=== PATIENT | male | born 1980 | race Caucasian/White ===

== ENCOUNTER → 2021-01-08 | Outpatient (CLI) | payer OTHER ==
--- NOTE | 2021-01-08 16:53 | DIREP ---
PROCEDURE:XRAY SHOULDER MIN 2 VWS-LT COMPARISON:[facility], CR, XRAY SHOULDER MIN 2 VWS-LT, 01/02/2021, 02:58 PM. INDICATIONS:S49.92XA INJURY OF LEFT SHOULDER, V80.010A ANIMAL RIDER INJURED FINDINGS: BONES:Normal. JOINTS:Normal glenohumeral and acromioclavicular joints. No evidence for dislocation. SOFT TISSUES:Normal. OTHER:Normal. CONCLUSION:Normal left shoulder. Dictated by: Surinder Mcintyre M.D. on 01/08/2021 at 04:49 PM
== END | disposition home or self-care (01) ==
LOC: RAD 16:24
PROVIDERS: ATTEND Nurse Practitioner Adult Health
DX: S49.92XA Unspecified injury of left shoulder and upper arm, initial encounter (principal); V80.010A Animal-rider injured by fall from or being thrown from horse in noncollision accident, initial encounter; Y92.89 Other specified places as the place of occurrence of the external cause; Y93.89 Activity, other specified; Y99.8 Other external cause status
CPT/HCPCS: 73030-LT

== ENCOUNTER → 2021-01-31 | Outpatient (CLI) | payer OTHER ==
--- NOTE | 2021-01-31 11:07 | DIREP ---
PROCEDURE:MRI UPPER EXTREM JOINT W O CON LEFT COMPARISON:[facility], CR, XRAY SHOULDER MIN 2 VWS-LT, 01/08/2021, 04:36 PM. INDICATIONS:S49.92XA INJURY OF LEFT SHOULDER, V80.010A ANIMAL RIDER INJURED IN FALL TECHNIQUE:A variety of imaging planes and parameters were utilized for visualization of suspected pathology. Images were performed without contrast. FINDINGS: ROTATOR CUFF REGION CUFF TENDONS:Full-thickness tear at the mid and posterior infraspinous tendon in the majority of the infraspinous tendon, measures approximately 2.4 cm in AP with retraction to the apex of the humeral. Small septated cyst at the infraspinous Antonio tendinous junction measures 18 mm. Teres minor tendon is intact. Sub scapularis tendinosis. CUFF MUSCLES:Normal appearing muscles. DELTOID:Normal. No significant atrophy or tear. LONG BICEPS TENDON:Normal. No abnormal signal, attrition, or tear. LABRUM/BICEPS ANCHOR SUPERIOR:Superior labrum is torn. ANTERIOR/INFERIOR:Normal. No visible tear or attrition. POSTERIOR:Normal. No posterior labrum abnormality. CAPSULE ANTERIOR/INFERIOR:Normal. No visible capsular laxity or thickening. POSTERIOR:Normal. No visible capsular laxity or thickening. AC JOINT REGION AC JOINT:Normal acromioclavicular joint. AC LIGAMENTS:Normal acromioclavicular ligament. CC LIGAMENTS:Normal coracoclavicular ligaments. ACROMION:Normal horizontal (Type I) configuration. SUBACROMIAL BURSA:Normal. No significant effusion. HYALINE CARTILAGE:Normal. No visible cartilage narrowing or focal defect. OTHER BONES:Normal proximal humerus, glenoid, and coracoid. OTHER OBSERVATIONS:Mild glenohumeral effusion. CONCLUSION:Near complete tear of the supraspinatus tendon and infraspinous tendon as detailed above. Superior labrum is torn. Dictated by: Star Wick M.D. on 01/31/2021 at 11:03 AM
== END | disposition home or self-care (01) ==
LOC: RAD 09:02
PROVIDERS: ATTEND Nurse Practitioner Adult Health
DX: S49.92XA Unspecified injury of left shoulder and upper arm, initial encounter (principal); V80.010A Animal-rider injured by fall from or being thrown from horse in noncollision accident, initial encounter; X58.XXXA Exposure to other specified factors, initial encounter; Y92.89 Other specified places as the place of occurrence of the external cause; Y99.8 Other external cause status; Y93.89 Activity, other specified
CPT/HCPCS: 73221

== ENCOUNTER 2021-03-20 07:00 | Day surgery (SDC) | payer OTHER ==
[2021-03-18 15:03] VITALS: BP 143/84
[2021-03-18 15:39] LABS: BASOPHIL % 0.5 % (0.0-0.2); EOSINOPHIL # 0.2 10^3/uL (0.0-0.2); EOSINOPHIL % 2.1 % (0.0-5.0); LYMPHOCYTES # 1.96 10^3/uL1 (1.0-4.8); MEAN CORP HGB 31.2 pg (26-34); MONOCYTES # 0.7 10^3/uL (0.3-0.8); MONOCYTES % 8.4 % (5.0-12.0); NEUTROPHIL # 5.2 10^3/uL (1.8-7.7); NEUTROPHILS % 63.3 % (41.0-85.0); RED CELL DISTRIBUTION WIDTH 12.9 % (11.5-14.5)
[2021-03-18 15:55] LABS: CARBON DIOXIDE 30.3 mmol/L (20.0-32)
[2021-03-20] VITALS (11 sets, daily range): BP systolic 115–180; BP diastolic 66–98
[~2021-03-20] VITALS: Ht 160 cm; Wt 74.8 kg
[~2021-03-20 07:00] MED LIST: ANCEF 2 GM in NS 100ML 100 ML IV ONE; ANCEF ONE; IBUP-1127 PO; LACTATED RINGERS 1,000 ML IV SCH; LACTATED RINGERS 1,000 ML ONE
[2021-03-20] MEDS ORDERED: SODIUM CHLORIDE IRR BOTTLE IR ONE (07:20)
[2021-03-20] MEDS ORDERED: WATER ONE (07:20)
[2021-03-20] MEDS ORDERED: XYLOCAINE 1%-EPI 1:100,000 ONE (07:20)
[2021-03-20] MEDS ORDERED: DECADRON ONE (09:30)
[2021-03-20] MEDS ORDERED: ZOFRAN ONE (09:30)
[2021-03-20] MEDS ORDERED: XYLOCAINE 2% 5ML VIAL ONE (09:30)
[2021-03-20] MEDS ORDERED: BRIDION IV ONE (09:30)
[2021-03-20] MEDS ORDERED: ROCURONIUM BROMIDE IV ONE (09:31)
[2021-03-20] MEDS ORDERED: DILAUDID ONE (09:31)
[2021-03-20] MEDS ORDERED: SUBLIMAZE ONE (09:32)
[2021-03-20] MEDS ORDERED: DIPRIVAN IV ONE (09:32)
[2021-03-20] MEDS ORDERED: OFIRMEV 100 ML IV ONE (10:04)
[2021-03-20] MEDS ORDERED: TRAM50TA PO (11:56)
[2021-03-20] MEDS ORDERED: LACTATED RINGERS 1,000 ML ONE (12:03)
[2021-03-20] MEDS ORDERED: EPHEDRINE SULFATE ONE (12:03)
[2021-03-20] MEDS ORDERED: ULTRAM ONE (12:37)
[2021-03-20] MEDS ORDERED: ULTRAM PO PRN (12:40)
--- NOTE | 2021-03-20 14:30 | OPH ---
DATE OF SURGERY: 03/20/2021 DICTATOR NAME: Moe Williamson MD PREOPERATIVE DIAGNOSES: 1. Labral tear of the left shoulder. 2. Rotator cuff tear, left shoulder. POSTOPERATIVE DIAGNOSES: 1. Labral tear of the left shoulder. 2. Rotator cuff tear, left shoulder. OPERATIVE PROCEDURE: 1. Arthroscopy of the left shoulder with debridement of labral tear. 2. Through a separate incision is an open left rotator cuff repair. SURGEON: Moe Williamson MD. ANESTHESIA: General endotracheal. BLOOD LOSS: 200 mL DRAINS: None. DESCRIPTION OF INDICATIONS: The patient is a 40-year-old male with pain about the left shoulder since he was injured on 01/02/2021 when he was thrown from a horse at work. Prior to that, the patient had normal function of his left shoulder. He complains of night pain as well as pain with overhead activities and complained of weakness. The patient has had multiple physical therapy treatments as well as a cortisone injection, arm sling and anti-inflammatories. The patient has full range of motion about the shoulder. There is pain with resisted external rotation as well as resisted abduction at 90 degrees. The MRI scan shows that he has a full-thickness supraspinatus tear as well as a labral tear. The patient was taken to the operating room for the above procedure because of continued pain. DESCRIPTION OF PROCEDURE: The patient was placed on the operating table in the supine position. The patient was given a general endotracheal anesthetic and then placed in the beach chair position. Left upper extremity was then sterilely prepped and draped. The left shoulder then had arthroscopy portals made posterior, anterior and lateral. The arthroscope was introduced through the posterior portal. The glenohumeral joint had normal articular cartilage about the humeral head and the glenoid. He had a tear of the superior portion of his labrum. The shaver was introduced through the anterior portal and the labral tear was debrided. The patient then had the rotator cuff tear viewed from the articular side and he was noted to have a tear of the anterolateral insertion of his rotator cuff with some retraction. He had crescent-shaped tear. The biceps tendon was normal to visualization as well as probing. Arthroscope was then placed in the subacromial space. The lateral portal, a bursectomy was performed with the shaver. Arthrowand was used to clear the soft tissue from the acromion. Clinically, he had a type 3 acromion and the acromioplasty was performed with a 4.0 round bur. Rotator cuff tear was noted about the anterolateral portion of the shoulder from the bursal side. The arthroscopic equipment was then removed from the shoulder. The patient had the shoulder was reprepped. The patient had an anterolateral incision made about the tip of the acromion and taken laterally. Incision was taken through the skin and the subcutaneous tissues. The bleeding was controlled with cautery. The tip of the deltoid was taken off of the edge of the acromion. The patient then had the incision taken through the deltoid. The bursa was excised. Rotator cuff tear was identified and tagged with some sutures. Elevator was used to free up any bursal adhesions on the bursal side as well as the articular side of the rotator cuff tear. We placed multiple #2 FiberWire sutures from anterior to posterior. The patient had the rotator cuff footprint "scuffed up" with a curette. The patient had a suture anchor with multiple FiberWire sutures placed in the rotator cuff footprint. The sutures were then passed anterior and posteriorly through the tear. We then tied the sutures from medial to lateral advancing the tear and we had good tight closure. The last 3 FiberWire sutures pulled the repair down to bone. The wounds were then copiously irrigated. We used #2 Ethilon suture in an interrupted manner to 1 Vicryl in a running manner. The subcutaneous was closed with a 3-0 barbed Monocryl in a running subcuticular manner. The skin was closed with Steri-Strips. The portal tracts were closed with 3-0 Ethilon in an interrupted manner. Steri-Strips. Band-Aids were placed over the portal tracts and then an Aquacel dressing was placed over the main incision. The patient was placed in an arm sling and was extubated in the operating room and sent to recovery in stable condition. Moe Williamson MD DR: NARNE/GRIS NOVAK: [id number] RECEIPT: [id number]
== END 2021-03-20 13:35 | disposition home or self-care (01) ==
LOC: SDC 07:00
PROVIDERS: ATTEND Orthopaedic Surgery
DX: S46.012A Strain of muscle(s) and tendon(s) of the rotator cuff of left shoulder, initial encounter (principal); S43.492A Other sprain of left shoulder joint, initial encounter; F17.200 Nicotine dependence, unspecified, uncomplicated; Z98.890 Other specified postprocedural states; Z88.6 Allergy status to analgesic agent; Z88.8 Allergy status to other drugs, medicaments and biological substances; Z79.899 Other long term (current) drug therapy; V80.010A Animal-rider injured by fall from or being thrown from horse in noncollision accident, initial encounter; Y93.89 Activity, other specified; Y92.89 Other specified places as the place of occurrence of the external cause
CPT/HCPCS: 36415; 80053; 85025; A4217; C1713; J0131; J0690; J1100; J1170; J2001; J2405; J3010; J3490; J7120